=== PATIENT | female | born 1995 | race American Indian/Alaskan Native ===

== ENCOUNTER 2021-12-27 05:41 | Outpatient (CLI) | payer MEDICAID ==
[2021-12-27 06:05] VITALS: BP 108/65
[2021-12-27] MEDS ORDERED: LACTATED RINGERS 1,000 ML IV ONE (06:14)
--- NOTE | 2021-12-27 07:55 | Ultrasound Report ---
ULTRASOUND OBSTETRIC limited INDICATION / CLINICAL INFORMATION: Evaluation of . Clinical Gestational Age (GA) in weeks, days: 23 weeks 1 day TECHNIQUE: Transabdominal. COMPARISON: None available. FINDINGS: NUMBER: Single PRESENTATION: cephalic PLACENTA: anterior and free of the os. AMNIOTIC FLUID VOLUME: normal AMNIOTIC FLUID INDEX (HARINI) in cm (if measured): 9.8 cm MEASUREMENTS: - Biparietal Diameter = 7.4 cm = 29 weeks, 3 days - Head Circumference = 26.0 cm = 28 weeks, 2 days - Abdominal Circumference = 19.6 cm = 24 weeks, 2 days - Femur Length = 5.4 cm = 28 weeks, 5 days - Estimated Weight (in grams, if calculated): 949 g - Heart Rate (beats per minute): 159 ADDITIONAL FINDINGS: None. PERCENTILE ESTIMATED WEIGHT (if calculated): AVERAGE ULTRASOUND AGE (AUA) in weeks, days = 27 weeks 5 days IMPRESSION: 1. Single intrauterine with AUA of 27 weeks, 5 days 2. No significant sonographic abnormality. Signer Name: Lyla Kay MD Signed: 12/27/2021 7:51 AM Workstation Name: [id number]
[2021-12-27] MEDS ORDERED: ONDANSETRON 4 MG/2 ML INJ IM ONE (08:55)
[2021-12-27] MEDS ORDERED: ONDANSETRON 4 MG/2 ML INJ IV NR (09:37)
[2021-12-27] MEDS ORDERED: ACETAMINOPHEN 325 MG TAB PO ONE (09:59)
[2021-12-27] MEDS ORDERED: LACTATED RINGERS 1,000 ML IV SCH (11:00)
[2021-12-27] MEDS ORDERED: FAMOTIDINE 20 MG/2 ML INJ IV NR (12:00)
== END 2021-12-27 12:00 | disposition home or self-care (01) ==
LOC: TRG 05:41 → APU 05:41 → TRG 12:00
PROVIDERS: ATTEND Obstetrics & Gynecology
DX: O26.892 Other specified pregnancy related conditions, second trimester (principal); R10.30 Lower abdominal pain, unspecified; O21.2 Late vomiting of pregnancy; Z3A.27 27 weeks gestation of pregnancy
CPT/HCPCS: 59025; 76816; 96361; 96365; 96367; J2405; J3490; J7120; 76815; 96374